=== PATIENT | male | born 1985 | race Caucasian/White ===

== ENCOUNTER 2017-04-24 11:16 | Emergency (ER) | payer SELFPAY ==
[2017-04-24] MEDS ORDERED: Fentanyl 100 MCG/2 ML VIAL ONE (21:05)
== END 2017-04-24 12:03 | disposition home or self-care (01) ==
LOC: MADERS 11:16
DX: L02.611 Cutaneous abscess of right foot (principal); F17.210 Nicotine dependence, cigarettes, uncomplicated
CPT/HCPCS: 10060; 87070; 87077; 87186; 87205; J3010

== ENCOUNTER 2017-09-20 15:08 | Emergency (ER) | payer SELFPAY ==
[2017-09-20] MEDS ORDERED: Adacel (T-DAP) 0.5 ML VIAL ONE (15:33)
[2017-09-20] MEDS ORDERED: Cephalexin 500 MG CAP ONE (15:33)
== END 2017-09-20 15:57 | disposition home or self-care (01) ==
LOC: MADERS 15:08
DX: L03.115 Cellulitis of right lower limb (principal); F17.210 Nicotine dependence, cigarettes, uncomplicated
CPT/HCPCS: 90471; 90715

== ENCOUNTER 2018-08-27 19:15 | Emergency (ER) | payer SELFPAY | END 2018-08-27 20:45 | disposition left against medical advice (07) | LOC: MADERS 19:15 | DX: Z53.21 Procedure and treatment not carried out due to patient leaving prior to being seen by health care provider (principal) ==

== ENCOUNTER 2021-12-19 22:16 | Emergency (ER) | payer BC, SELFPAY ==
[2021-12-19] MEDS ORDERED: HYDROcodone/Acetaminophen 5/325 mg Tablet ONE (23:32)
[2021-12-19] MEDS ORDERED: Oseltamivir 75 MG CAP ONE (23:33)
[2021-12-19] MEDS ORDERED: Ketorolac Tromethamine 60 MG/2 ML VIAL ONE (23:33)
[2021-12-19] MEDS ORDERED: Benzonatate 100 MG CAP ONE (23:33)
== END 2021-12-20 00:02 | disposition home or self-care (01) ==
LOC: MADERS 22:16
DX: J11.1 Influenza due to unidentified influenza virus with other respiratory manifestations (principal); F17.210 Nicotine dependence, cigarettes, uncomplicated
CPT/HCPCS: 96372; 99283; J1885

== ENCOUNTER 2022-03-17 14:29 | Emergency (ER) | payer BC ==
[2022-03-17] MEDS ORDERED: Ketorolac Tromethamine 30 MG/ML VIAL ONE (15:20)
[2022-03-17] MEDS ORDERED: Amoxicillin/Potassium Clav 875 MG TAB ONE (15:20)
== END 2022-03-17 16:35 | disposition home or self-care (01) ==
LOC: MADERS 14:29
DX: K05.10 Chronic gingivitis, plaque induced (principal); K02.9 Dental caries, unspecified; F17.210 Nicotine dependence, cigarettes, uncomplicated; Z79.899 Other long term (current) drug therapy
CPT/HCPCS: 96372; 99282; J1885